=== PATIENT | male | born 1950 | race Native Hawaiian/Other Pacific Islander ===

== ENCOUNTER → 2017-05-01 17:16 | Outpatient (CLI) | payer OTHER ==
[~2017-05-01 17:16] MED LIST: COZAAR25 MG PO; WARF7.5T5 PO
== END | disposition home or self-care (01) ==
LOC: AMB 17:16
DX: S61.210A Laceration without foreign body of right index finger without damage to nail, initial encounter (principal)

== ENCOUNTER 2017-05-01 17:39 | Emergency (ER) | payer OTHER ==
[~2017-05-01] VITALS: Ht 185.4 cm; Wt 113.4 kg
[2017-05-01] MEDS ORDERED: WARF7.5T5 PO (17:54)
[2017-05-01] MEDS ORDERED: COZAAR25 MG PO (17:55)
== END 2017-05-01 19:24 | disposition home or self-care (01) ==
LOC: EDBD 17:39 → ED 17:39
DX: S67.191A Crushing injury of left index finger, initial encounter (principal); S61.211A Laceration without foreign body of left index finger without damage to nail, initial encounter; W23.0XXA Caught, crushed, jammed, or pinched between moving objects, initial encounter; Y92.098 Other place in other non-institutional residence as the place of occurrence of the external cause
CPT/HCPCS: 90715; 99282; J7040

== ENCOUNTER 2022-08-15 10:48 | Outpatient (CLI) | payer OTHER | END 2022-08-15 19:19 | disposition home or self-care (01) | LOC: RAD 10:48 | PROVIDERS: ATTEND Internal Medicine | DX: M48.50XA Collapsed vertebra, not elsewhere classified, site unspecified, initial encounter for fracture (principal) ==